=== PATIENT | female | born 2005 | race Caucasian/White ===

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

== ENCOUNTER → 2023-09-07 | Outpatient (CLI) | payer OTHER ==
[~2023-09-07] MED LIST: LEXA5TAB13 PO
[2023-09-07 13:49] LABS: BASO % 0.5 % (0.0-1.0); EOS # 0.1 10^3/uL (0.0-0.5); HEMOGLOBIN 14.5 g/dl (12.0-15.5); LYMPH # 1.9 10^3/uL (1.5-5.0); MEAN CORPUSCULAR VOLUME 97.1 fl (80.0-96.0); MONO # 0.4 10^3/uL (0.0-0.8); MONO % 7.2 % (2.0-8.0); NEUTROPHILS # 3.6 10^3/uL (1.5-8.5); PLATELET COUNT, AUTOMATED 179 10^3/uL (150-450); RED BLOOD COUNT 4.53 10^6/uL (4.00-5.40); WHITE BLOOD COUNT 6.1 10^3/uL (4.0-10.0)
[2023-09-07 14:10] LABS: HCG, SERUM QUANTITATIVE < 2.6 MIU/ML (<4.2)
[2023-09-07 14:14] LABS: TOTAL 25(OH) VITAMIN D 9.9 NG/ML (20.0-100.0)
[2023-09-07 14:16] LABS: FERRITIN 7.3 NG/ML (7.3-270.7)
[2023-09-07 14:17] LABS: ALBUMIN 3.6 G/DL (3.2-5.2); ALKALINE PHOSPHATASE 60 U/L (46-116); ALT/SGPT 30 U/L (7.0-40); AST/SGOT 20 U/L (<34); BILIRUBIN,TOTAL 0.7 MG/DL (0.3-1.2); BLOOD UREA NITROGEN 10 MG/DL (9-23); CALCIUM LEVEL 8.9 MG/DL (8.5-10.1); CARBON DIOXIDE LEVEL 28 MMOL/L (20-31); CHLORIDE LEVEL 105 MMOL/L (98-107); CREATININE FOR GFR 0.66 MG/DL (0.55-1.30); FOLLICLE STIMULATING HORMONE 8.7 mIU/ML; GLUCOSE, FASTING 96 MG/DL (60-100); IRON (FE) 176 UG/DL (50-170); LUTEINIZING HORMONE 6.3 mIU/ML; PERCENT SATURATION 47.6 % (13.2-45.0); POTASSIUM SERUM 4.1 MMOL/L (3.5-5.1); SODIUM LEVEL 140 MMOL/L (136-145); THYROID STIMULATING HORMONE 1.569 uIU/ML (0.48-4.17); TOTAL IRON BINDING CAPACITY 370 UG/DL (250-425); TOTAL PROTEIN 6.3 G/DL (5.7-8.2)
[2023-09-07 14:18] LABS: FREE T4 1.13 NG/DL (0.83-1.43); VITAMIN B12 LEVEL 291 PG/ML (211-911)
== END ==
LOC: M LAB 13:08
PROVIDERS: ATTEND Registered Nurse
DX: N92.1 Excessive and frequent menstruation with irregular cycle (principal); R53.83 Other fatigue